=== PATIENT | female | born 1955 | race Caucasian/White ===

== ENCOUNTER 2017-12-22 11:52 | Emergency (ER) | payer MEDICARE, MEDICAID ==
[2017-12-22 12:32] VITALS: BP 129/74
--- NOTE | 2017-12-22 12:58 | UC ---
Respiratory Complaint HPI - HPI Summary HPI Summary: cough x 3 days productive with yellow sputum , no fever, + chills, + sob and wheezing no nasal congestion , no sore throat - History of Current Complaint Chief Complaint: UCRespiratory Stated Complaint: COUGH Time Seen by Provider: 12/22/17 12:37 Hx Obtained From: Patient Onset/Duration: Gradual Onset, Lasting Days - 3, Still Present Timing: Constant Severity Initially: Moderate Severity Currently: Moderate Pain Intensity: 0 Character: Cough: Productive Aggravating Factors: Exertion, Deep Breaths Associated Signs And Symptoms: Positive: Wheezing. Negative: Dyspnea, Fever, Chills, Hemoptysis, Dizziness, Calf Pain, Calf Swelling, URI, Nasal Congestion, Hoarseness - Allergies/Home Medications Allergies/Adverse Reactions: Allergies Allergy/AdvReac Type Severity Reaction Status Date / Time No Known Allergies Allergy Verified 12/22/17 12:34 Home Medications: Home Medications Bp Med 1 dose PO DAILY 12/22/17 [History Confirmed 12/22/17] Budesonide/Formote 80/4.5(NF) [Symbicort 80/4.5 (NF)] 1 puff INH BID 12/22/17 [ History Confirmed 12/22/17] Levothyroxine TAB* [Synthroid TAB*] 1 dose PO 0800 12/22/17 [History Confirmed 12/22/17] Tiotropium CAP.INH* [Spiriva CAP.INH*] 1 cap.inh INH DAILY 12/22/17 [History Confirmed 12/22/17] PMH/Surg Hx/FS Hx/Imm Hx Previously Healthy: Yes - Surgical History Surgical History: Yes Surgery Procedure, Year, and Place: left shoulder x2. tubal - Family History Known Family History: Negative: Diabetes - Social History Alcohol Use: None Substance Use Type: None Smoking Status (MU): Heavy Every Day Tobacco Smoker Type: Cigarettes Length of Time of Smoking/Using Tobacco: started age 14 Review of Systems Constitutional: Negative Skin: Negative Eyes: Negative ENT: Negative Respiratory: Negative Cardiovascular: Negative Neurological: Negative Is Patient Immunocompromised?: No All Other Systems Reviewed And Are Negative: Yes Physical Exam Triage Information Reviewed: Yes Appearance: Well-Appearing, No Pain Distress, Well-Nourished Vital Signs: Initial Vital Signs Temp 98.4 F 12/22/17 12:28 Pulse 70 03/15/18 12:28 Resp 20 12/22/17 12:28 BP 129/74 12/22/17 12:28 Pulse Ox 94 12/22/17 12:28 Vital Signs Reviewed: Yes Eyes: Positive: Conjunctiva Clear ENT: Positive: Normal ENT inspection, Hearing grossly normal, Pharynx normal Neck exam: Normal Neck: Positive: Supple, Nontender, No Lymphadenopathy Respiratory: Positive: Chest non-tender, Respiratory distress, Decreased breath sounds Cardiovascular: Positive: RRR, No Murmur, Pulses Normal Abdominal Exam: Normal Abdomen Description: Positive: Nontender, Soft. Negative: CVA Tenderness (R), CVA Tenderness (L), Distended, Guarding Bowel Sounds: Positive: Present UC Diagnostic Evaluation - Laboratory O2 Sat by Pulse Oximetry: 94 Respiratory Course/Dx - Differential Dx/Diagnosis Provider Diagnoses: bronchitis. COPD Discharge - Discharge Plan Condition: Stable Disposition: HOME Prescriptions: Azithromycin TAB* [Zithromax TAB (Z-MIGUEL) 250 mg #6 tabs] 2 tab PO .TODAY, THEN 1 DAILY #1 miguel predniSONE TAB* [Deltasone TAB*] 40 mg PO DAILY #10 tab Patient Education Materials: Acute Bronchitis (ED), COPD (Chronic Obstructive Pulmonary Disease) (ED) Referrals: Vivi Sanchez MD [Primary Care Provider] - 7 Days
--- NOTE | 2017-12-22 13:02 | RAD ---
INDICATION: Cough. Short of breath COMPARISON: April 22, 2009 TECHNIQUE: PA and lateral dual-energy views were obtained. FINDINGS: Bones/Soft Tissues: There are no acute bony findings. Cardiomediastinal: The cardiomediastinal silhouette is normal. Lungs: There are no infiltrates. Pleura: There are no pleural effusions. Other: None IMPRESSION: NO ACTIVE DISEASE.
== END 2017-12-22 13:13 | disposition home or self-care (01) ==
LOC: UCCORT 11:52
DX: J40 Bronchitis, not specified as acute or chronic (principal); J44.9 Chronic obstructive pulmonary disease, unspecified; F17.210 Nicotine dependence, cigarettes, uncomplicated
CPT/HCPCS: 71046; 99212; G0463